=== PATIENT | female | born 1985 | race American Indian/Alaskan Native ===

== ENCOUNTER 2019-10-09 15:56 | Emergency (ER) | payer SELFPAY ==
[2019-10-09] MEDS ORDERED: ACETAMINOPHEN 500 MG TAB PO ONE (20:13)
[2019-10-09] MEDS ORDERED: LIDOCAINE 2%/EPINEPHRINE 1:200,000 VIAL (20 ML) INFILTRATI ONE (20:13)
[2019-10-09] MEDS ORDERED: SODIUM CHLORIDE 0.9% IRR 500 ML BOTTLE IR ONE (20:13)
[2019-10-09] MEDS ORDERED: BACITRACIN ZINC OINT 28.4 GM TP STA (20:15)
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
[2019-10-09 21:21] VITALS: BP 115/69
== END 2019-10-09 21:55 | disposition left against medical advice (07) ==
LOC: ED 15:56
DX: S60.811A Abrasion of right wrist, initial encounter (principal); S51.012A Laceration without foreign body of left elbow, initial encounter; Z98.890 Other specified postprocedural states; Z79.899 Other long term (current) drug therapy; V49.69XA Unspecified car occupant injured in collision with other motor vehicles in traffic accident, initial encounter; Y93.89 Activity, other specified; Y92.488 Other paved roadways as the place of occurrence of the external cause; Y99.8 Other external cause status
CPT/HCPCS: 70450